=== PATIENT | male | born 1970 | race Caucasian/White ===

== ENCOUNTER 2018-03-20 13:18 | Emergency (ER) | payer OTHER ==
[2018-03-20 13:35] VITALS: BMI 28.1
[2018-03-20 13:38] VITALS: O2SAT 98
--- NOTE | 2018-03-20 14:18 | C.PDOC ---
History Of Present Illness 47 year old male with no prior medical history presents to the emergency department with complaints of left testicular pain and mild swelling. Patient denies trauma, and states that the pain was sudden without an inciting factor. Patient states that he visited his PMD today and was referred to the ED for further evaluation. Patient denies fever, chills, nausea, vomiting, and diarrhea. Time Seen by Provider: 03/20/18 14:03 Chief Complaint (Nursing): Male Genitourinary History Per: Patient History/Exam Limitations: no limitations Onset/Duration Of Symptoms: Days (5) Current Symptoms Are (Timing): Still Present Quality Of Discomfort: "Pain" Associated Symptoms: denies: Fever, Chills, Nausea, Vomiting, Diarrhea, Urinary Symptoms Past Medical History Reviewed: Historical Data, Nursing Documentation, Vital Signs Vital Signs: Last Vital Signs Temp 98.5 F 03/20/18 13:35 Pulse 96 H 03/20/18 13:35 Resp 20 03/20/18 13:35 BP 136/81 03/20/18 13:35 Pulse Ox 98 03/20/18 13:35 - Medical History PMH: No Chronic Diseases Surgical History: No Surg Hx Family History: States: No Known Family Hx - Social History Hx Alcohol Use: No Hx Substance Use: No - Immunization History Hx Tetanus Toxoid Vaccination: No Hx Influenza Vaccination: No Hx Pneumococcal Vaccination: No Review Of Systems Except As Marked, All Systems Reviewed And Found Negative. Constitutional: Negative for: Fever, Chills Gastrointestinal: Negative for: Nausea, Vomiting, Abdominal Pain, Diarrhea Genitourinary: Positive for: Scrotal Pain (testicular pain and swelling) Physical Exam - Physical Exam Appears: Non-toxic, No Acute Distress Skin: Normal Color, Warm, Dry Head: Atraumatic, Normacephalic Eye(s): bilateral: Normal Inspection, PERRL, EOMI Neck: Normal, Supple Chest: Symmetrical, No Tenderness Cardiovascular: Rhythm Regular, No Murmur Respiratory: Normal Breath Sounds Gastrointestinal/Abdominal: Soft, No Tenderness Male Genital: Testicular Tenderness (minimal left-sided tenderness), Testicular Swelling (minimal left-sided swelling), Other (Positive cremasteric reflex) Neurological/Psych: Oriented x3, Normal Speech, Normal Cognition ED Course And Treatment O2 Sat by Pulse Oximetry: 98 (RA) Pulse Ox Interpretation: Normal - CT Scan/US US Testicular Other Rad Studies (CT/US): Read By Radiologist, Radiology Report Reviewed CT/US Interpretation: IMPRESSION: Left epididymo-orchitis identified. No evidence of testicular torsion, cyst or solid testicular mass bilaterally. Bilateral varicoceles identified. Medical Decision Making Medical Decision Making: ro torsion, epididimitis Plan: Chlamydia GC Urinalysis US Testicular denies sexual activity will cover for enteric advise close outpt fu and return precautions. Disposition - Disposition Referrals: Veena Thomson MD [Staff Provider] - Disposition: HOME/ ROUTINE Disposition Time: 14:00 Condition: STABLE Additional Instructions: please see specialist you will need further testing as an outpatient. return to any er with worsening symptoms or concerns. Prescriptions: RX: Ciprofloxacin [Cipro] 500 mg PO BID #20 tab Instructions: Epididymitis Forms: [employer] ([place]) - Clinical Impression Clinical Impression: Orchitis, Epididymitis - Scribe Statement The provider has reviewed the documentation as recorded by the Scribe (Pa Butts) Provider Attestation: All medical record entries made by the Scribe were at my direction and personally dictated by me. I have reviewed the chart and agree that the record accurately reflects my personal performance of the history, physical exam, medical decision making, and the department course for this patient. I have also personally directed, reviewed, and agree with the discharge instructions and disposition.
[2018-03-20 14:55] LABS: SQUAMOUS EPITHIAL < 1 /hpf (0-5); URINE BILIRUBIN NEGATIVE (NEGATIVE); URINE BLOOD 1+ (NEGATIVE); URINE CLARITY Clear (Clear); URINE COLOR Yellow (YELLOW); URINE GLUCOSE (UA) NORMAL (Normal); URINE LEUKOCYTE ESTERASE NEG Leu/uL (Negative); URINE PROTEIN NEGATIVE (NEGATIVE); URINE UROBILINOGEN NORMAL mg/dL (0.2-1.0)
--- NOTE | 2018-03-20 15:56 | US ---
Date of service: 03/20/2018 HISTORY: left sided pain TECHNIQUE: Realtime sonography through the scrotum with color and doppler flow. COMPARISON: None Available. FINDINGS: RIGHT TESTICLE: Measures 4.9 x 1.9 x 2.6 cm. Normal echotexture and flow. RIGHT EPIDIDYMIS: Epididymal head measures 1.8 x 1.5 x 1.7 cm. Grossly unremarkable appearance with normal flow. LEFT TESTICLE: Measures 4.7 x 2.4 x 3.2 cm. Normal echotexture and flow. Hyperemia identified diffusely LEFT EPIDIDYMIS: Epididymal head measures 2.9 x 2.5 x 2.6 cm. Grossly unremarkable appearance with normal flow. Hyperemia identified diffusely HYDROCELE: None. VARICOCELE: Bilateral varicoceles identified greater at the left than right sides OTHER FINDINGS: None. IMPRESSION: Left epididymo-orchitis identified. No evidence of testicular torsion, cyst or solid testicular mass bilaterally. Bilateral varicoceles identified.
[2018-03-20 16:56] VITALS: BP 107/67; PULSE 73; RESP 18; TEMP 98
== END 2018-03-20 16:30 | disposition home or self-care (01) ==
LOC: C.ER 13:18
DX: N45.3 Epididymo-orchitis (principal)